=== PATIENT | male | born 1975 | race Caucasian/White ===

== ENCOUNTER 2024-08-08 20:18 | Emergency (ER) | payer OTHER | END 2024-08-08 21:21 | disposition home or self-care (01) | LOC: JD.ED 20:18 | DX: H66.001 Acute suppurative otitis media without spontaneous rupture of ear drum, right ear (principal); K02.9 Dental caries, unspecified; Z88.0 Allergy status to penicillin | CPT/HCPCS: 99282; 99283 ==